=== PATIENT | male | born 1945 | race Caucasian/White ===

== ENCOUNTER 2018-06-19 14:13 | Emergency (ER) | payer MEDICARE, SELFPAY ==
[2018-06-19 14:14] VITALS: BP 183/117; PULSE 104; RESP 17; TEMP 36.6; O2SAT 95; BMI 27.8
--- NOTE | 2018-06-19 15:04 | RAD_ITS ---
STUDY: X-RAY - LEFT HAND REASON FOR EXAM: Male, 73 years old. Injury to the fourth digit. TECHNIQUE: 3 view(s) of the hand. COMPARISON: None. FINDINGS: Normal radiocarpal articulation. Normal distal radioulnar joint. Normal visualized carpal bones. Normal carpal articulations Normal carpometacarpal articulation of the thumb. Normal second through fifth carpometacarpal joints. Normal metacarpi. Normal metacarpophalangeal joint of the thumb. 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 Normal proximal and distal phalanges of the thumb. Normal metacarpophalangeal joints of the second through fifth fingers. 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 Only the proximal aspect of the proximal fillings of the index finger is seen. There is evidence of a nondisplaced fracture at the tuft of the distal phalanx of the fourth digit with overlying soft tissue swelling. Soft tissue swelling RAD/Hand Min 3 Views IMPRESSION: Nondisplaced fracture at the tuft of distal phalanx of the fourth digit with overlying soft tissue swelling and laceration. Electronically Signed: Chidi Johnson, at 15:44 EST , Service support ,
--- NOTE | 2018-06-19 15:06 | ED.VISSUMM ---
- ER Visit Summary Date of Service: 06/19/18 Chief Complaint: Left third and fourth finger laceration History of Present Illness: The patient is a 73 M who cut the tips of his left third and fourth fingers on a table saw around 1230 this afternoon. Patient took Tylenol prior to arrival. He is unsure of his last tetanus update. Medication list is reviewed and does not include anticoagulants. Physical Examination: Vital signs significant for blood pressure 183/117. Patient sitting upright in bed no acute distress. Head neck examination unremarkable. Heart is regular rate and rhythm without murmur. Lungs are clear. Left upper extremity examination reveals lacerations to the tips of the left third and fourth fingertips. He has a distal nail avulsion on the third finger. On the fourth finger there is distal nail avulsion and skin avulsion. There is a 1 cm laceration that wraps around the distal tuft of the finger. Test Results: Left hand x-rays are obtained and show a nondisplaced fracture of the tuft of the distal phalanx of the fourth digit with overlying soft tissue swelling and laceration. Emergency Department Course and Treatment: Patient is given a tetanus update and p.o. Keflex. Patient had digital block performed with a total of 6 cc of lidocaine to both the third and fourth fingers of the left hand. Third finger wound was cleansed. Skin and distal nail are avulsed, but there is no evidence of laceration that is amenable to suture. The fourth finger has distal nail avulsion and skin avulsion. There is a 1 cm laceration that wraps around the distal tuft that is sutured with 3 simple interrupted sutures of 3-0 Rapide Vicryl. Following this there is good hemostasis. Surgifoam was applied and dressings are placed. Patient will be treated with Keflex. Treatment Plan: [] Disposition: Discharge Impression: 1. Left fourth distal phalanx fracture/laceration status post suture 2. Left third distal phalanx skin avulsion This note was generated with [employer] dictation software. It may contain incorrect words, spelling, and punctuation that were not noted in review of the chart prior to signing ED Disposition - Plan for ED Patient: Referrals: Shreya Wheat MD [Primary Care Provider] -
--- NOTE | 2018-06-19 16:05 | ED.DEP ---
ED Disposition - Plan for ED Patient: Disposition: Home or Assisted Living Instructions: ED Laceration Hand, ED Fx Finger Open Prescriptions: Cephalexin [Keflex] 500 mg PO Q6 #40 capsule Referrals: Shreya Wheat MD [Primary Care Provider] - 1 Week
[2018-06-19] MEDS: Diphth,Pertuss(Acell),Tet Vac 0.5 ML Vial IM (16:18)
== END 2018-06-19 16:31 | disposition home or self-care (01) ==
PROVIDERS: Emergency Provider Emergency Medicine; Family Provider Internal Medicine; PCP Internal Medicine
DX: S62.665A Nondisplaced fracture of distal phalanx of left ring finger, initial encounter for closed fracture (principal); S61.315A Laceration without foreign body of left ring finger with damage to nail, initial encounter; S61.313A Laceration without foreign body of left middle finger with damage to nail, initial encounter; W31.2XXA Contact with powered woodworking and forming machines, initial encounter; Y93.9 Activity, unspecified; Y92.9 Unspecified place or not applicable; Z23 Encounter for immunization
CPT/HCPCS: 12001; 73130; 90471; 90715; 99283

== ENCOUNTER → 2023-08-02 | Outpatient (CLI) | payer MEDICARE, SELFPAY ==
--- NOTE | 2023-08-02 10:50 | STRESSREP_ITS ---
Stress Test Report 78-year-old man with a history of chest discomfort Exercise stress test. Resting EKG demonstrates normal sinus rhythm with a rate of 83 bpm and intervals are noted resting blood pressure is 142/80 mmHg. The patient exercised according to the regular Francois protocol for total duration of 3 minutes the maximum heart rate attained was 136 bpm which was 97% of max impacted heart rate the maximum workload was 4.6 metabolic equivalents. At rest there were no ST or T wave changes noted suggest ischemia and at peak exercise there was approxima tely [address] depression noted in leads II, III and aVF suggestive of ischemia. The patient also complained of throat tightness with exertion. This was relieved at rest. The peak blood pressure was 142/80 mmHg. Conclusion: Abnormal exercise stress test with EKG criteria for ischemia. Throat tightness reminiscent of his symptomatology.
== END | disposition home or self-care (01) ==
LOC: CVS 09:55
PROVIDERS: PCP Internal Medicine; Referring Provider Otolaryngology; Visit Provider Otolaryngology
DX: I20.9 Angina pectoris, unspecified (principal)
CPT/HCPCS: 93017

== ENCOUNTER 2023-08-07 16:14 | Outpatient (CLI) | payer MEDICARE, SELFPAY ==
--- NOTE | 2023-08-07 16:41 | RAD_ITS ---
STUDY: X-RAY CHEST REASON FOR EXAM: Male, 78 years old. chest pain TECHNIQUE: Complete chest, minimum of four views COMPARISON: None. FINDINGS: The lungs are clear and expanded. There is no demonstrated pleural abnormality. Normal size heart. Normal mediastinum and aleksandar. Normal visualized pulmonary arteries. Normal visualized aortic arch and descending thoracic aorta. Normal visualized thoracic spine. Normal visualized ribs, clavicles, and shoulders. There is no demonstrated abnormality of the visualized soft tissue structures of the upper abdomen. RAD/Chest 2 V w/ Apical/Lordotic IMPRESSION: Normal x-ray examination of the chest. Electronically Signed: Matthew Schreiber MD at 0:14 EDT ,
[2023-08-07 17:49] LABS: International Normalized Ratio 1.2; Prothrombin Time (Protime)PT. 14.8 SECONDS (11.7-14.9)
[2023-08-07 17:50] LABS: Partial Thromboplast Time 29.3 Seconds (24.1-36.2)
[2023-08-07 17:57] LABS: ALB/GLOB Ratio 0.9 RATIO (0.9-2.4); AST(SGOT) 31 U/L (15-37); Alanine Aminotransfer ALT/SGPT 28 U/L (16-61); Albumin, Serum 3.5 g/dL (3.2-5.0); Alkaline Phosphatase 103 U/L (45-117); Anion Gap 4 (5-15); BUN 30 mg/dL (7-18); BUN/Creat Ratio 21.9 RATIO (10-20); Calcium,Total 8.4 mg/dL (8.5-10.1); Chloride 107 mmol/L (98-107); Creatinine, Serum 1.37 mg/dL (0.70-1.30); EST Glomerular Filtration Rate 53 mL/min (>60); Est Glom Filt Rate - Afr Amer 64 mL/min (>60); Glucose 123 mg/dL (74-106); Protein, Total 7.5 g/dL (6.4-8.2); Sodium Level 137 mmol/L (136-145)
== END 2023-08-07 23:59 | disposition home or self-care (01) ==
PROVIDERS: PCP Internal Medicine; Referring Provider Internal Medicine Cardiovascular Disease; Visit Provider Internal Medicine Cardiovascular Disease
DX: I20.9 Angina pectoris, unspecified (principal); E78.00 Pure hypercholesterolemia, unspecified; D50.9 Iron deficiency anemia, unspecified; R07.9 Chest pain, unspecified
CPT/HCPCS: 36415; 71047; 80053; 85610; 85730

== ENCOUNTER → 2023-08-08 | Outpatient (CLI) | payer MEDICARE, SELFPAY ==
--- NOTE | 2023-08-08 12:44 | ECHOD_ITS ---
Reason For Study: Abnormal Stress Procedure This was a 2D Doppler, Color Flow transthoracic echocardiogram. Exam performed in department. Left Ventricle Normal LV size. Left ventricular systolic function is normal. The estimated ejection fraction is 60 %. Stage 1 diastolic dysfunction. No regional wall motion abnormalities noted. Right Ventricle Normal RV size. Normal systolic function. Atria Normal left atrium. Normal right atrium. Mitral Valve Normal mitral valve. Mild (1+) mitral valve insufficiency. Tricuspid Valve Normal tricuspid valve. Mild (1+) tricuspid valve insufficiency. Pulmonary artery systolic pressure is 48 mmHg. Aortic Valve Trisinus/trileaflet aortic valve. Mild focal aortic valve calcification. Peak aortic valve gradient 43 mmHg. Mean aortic valve gradient 23 mmHg. Mild (1+) aortic valve insufficiency. Pulmonic Valve Normal pulmonic valve. Great Vessels Normal aortic root. The pulmonary artery is normal size. Normal inferior vena cava. Pericardium/Pleural No pericardial effusion. MMode/2D Measurements & Calculations LVIDd: 4.1 cm IVSd: 1.2 cm LVOT diam: 2.0 cm LVIDs: 2.5 cm LVPWd: 0.99 cm LVOT area: 3.2 cm2 RVDd: 3.8 cm FS: 37.8 % Ao root diam: 3.6 cm LAV(MOD-bp): 54.2 ml Aortic Valve Planimetry: 1.0 cm2 LA dimension: 4.2 cm LAV(MOD-bp) Indexed: 32.7 ml/m2 LAV(MOD-sp2): 45.6 ml LAV(MOD-sp4): 62.4 ml LA A4 area: 20.5 cm2 RA A4 area: 15.7 cm2 Time Measurements MV dec time: 0.22 sec Doppler Measurements & Calculations MV E max virgilio: 87.4 cm/sec Lat Peak E' Virgilio: 8.9 cm/sec Med Peak E' Virgilio: 7.9 cm/sec MV A max virgilio: 99.8 cm/sec E/E' lat: 9.9 E/E' med: 11.0 MV E/A: 0.88 MV V2 max: 104.1 cm/sec MV P1/2t max virgilio: 101.0 cm/sec Ao V2 max: 326.0 cm/sec MV max P.3 mmHg MV P1/2t: 69.7 msec Ao max P.5 mmHg MV V2 mean: 57.3 cm/sec MV dec slope: 424.6 cm/sec2 Ao V2 mean: 225.2 cm/sec MV mean P.6 mmHg Ao mean P.2 mmHg MV V2 VTI: 28.4 cm MVA(P1/2t): 3.2 cm2 Ao V2 VTI: 69.4 cm MVA(VTI): 3.1 cm2 AV (velocity ratio): 0.40 BEATRIZ(I,D): 1.3 cm2 BEATRIZ(V,D): 1.2 cm2 AI max virgilio: 415.9 cm/sec LV V1 max: 122.5 cm/sec MR max virgilio: 510.1 cm/sec AI max P.4 mmHg LV V1 max P.0 mmHg MR max P.1 mmHg LV V1 mean P.4 mmHg AI dec slope: 241.7 cm/sec2 LV V1 mean: 86.7 cm/sec AI P1/2t: 504.1 msec LV V1 VTI: 27.8 cm SV(LVOT): 88.1 ml PA V2 max: 124.7 cm/sec TR max virgilio: 329.6 cm/sec TR max P.5 mmHg ECHO/Echo Complete Interpretation Summary Normal LV size. Left ventricular systolic function is normal. The estimated ejection fraction is 60 %. Stage 1 diastolic dysfunction. Mild focal aortic valve calcification. Mean aortic valve gradient 23 mmHg. Mild (1+) aortic valve insufficiency. The global longitudinal strain is normal. The global longitudinal strain = -20. 8 % (normal). Ordering Physician: Syed Gan Referring Physician: Shreya Wheat M.D. Performed By: [facility]
== END | disposition home or self-care (01) ==
LOC: CVS 12:42
PROVIDERS: PCP Internal Medicine; Referring Provider Internal Medicine Cardiovascular Disease; Visit Provider Internal Medicine Cardiovascular Disease
DX: R01.1 Cardiac murmur, unspecified (principal); R94.39 Abnormal result of other cardiovascular function study
CPT/HCPCS: 93306

== ENCOUNTER 2023-08-20 06:47 | Day surgery (SDC) | payer MEDICARE, SELFPAY ==
[2023-08-19 08:17] VITALS: BMI 26.2
[2023-08-20 07:04] LABS: Hematocrit 24.1 % (40-54); Hemoglobin 7.4 g/dL (13.0-16.5); Mean Corp Hgb Conc 30.7 g/dL (32-36); Mean Corpuscular Hgb 33.8 pg (27.0-32.0); Mean Platelet Vol. 10.9 fl (6.2-12.0); POSITIVE MORPHOLOGY YES; Platelet Count 195 K/mm3 (150-450); RBC Distribution Width CV 26.8 % (11.6-14.6); Red Blood Count 2.19 M/mm3 (4.6-6.2); White Blood Count 11.1 K/mm3 (4.4-11.0)
[2023-08-20 07:09] LABS: RBC Distribution Width SD 103.2 fl (35.1-43.9)
[2023-08-20 07:10] LABS: Scan Indicated on CBC? Y/N YES- FLAGS NOTED
[2023-08-20 07:19] LABS: Anion Gap 4 (5-15); BUN 24 mg/dL (7-18); BUN/Creat Ratio 19.7 RATIO (10-20); Calcium,Total 8.9 mg/dL (8.5-10.1); Chloride 108 mmol/L (98-107); Creatinine, Serum 1.22 mg/dL (0.70-1.30); EST Glomerular Filtration Rate 61 mL/min (>60); Est Glom Filt Rate - Afr Amer 73 mL/min (>60); Glucose 111 mg/dL (74-106); Potassium 4.2 mmol/L (3.5-5.1); Sodium Level 140 mmol/L (136-145)
--- NOTE | 2023-08-20 08:43 | CL.D_ITS ---
Patient Name: MARQUITA TORRES Study Date: 08/20/2023 Performing: Be Spangler MD Ht: 62 inches 157.48 cm : 1945 Wt: 142.99 lbs 64.86 kg Age: 78 Gender: male BSA: 1.66 PROCEDURE(S) PERFORMED DC01-(02886)LHC/COR/LV CLINICAL PROFILE AND INDICATIONS Indications: Suspected CAD, Valvular Disease Heart Failure: None Stress/Imaging Date: 07/28/23 CAD Presentations: Unstable angina. 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 Preserved ejection fraction noted. Mild aortic stenosis. RECOMMENDATIONS Will recommend optimization of medical therapy with panelboard operator oncologist with whom I have discussed this, and then referral for coronary bypass surgery and/or aortic valve replacement. DESCRIPTION OF PROCEDURE The patient arrived to the procedure lab. The risks and benefits of the procedure as well as a full description of our services here and current unavailability of surgical backup were fully explained to the patient and/or their significant other prior to the catheterization. The Timeout was completed, verifying the correct patient and procedure. The patient's procedural site was prepped and draped in the usual fashion. Local anesthetic was given subcutaneously to right radial region with Lidocaine 2%. Using a modified Seldinger technique, arterial access was obtained via the right radial artery, a 6Fr sheath was inserted. Right Coronary Artery selective angiography was then performed in multiple views using a 5 Fr. 4.0 [place] catheter. Left Coronary Artery selective angiography was performed in multiple views using a 5 Fr. JL3.5 catheter. Left Ventriculography was performed in [place] projection using a 5 Fr. Pigtail catheter. LV to AO pullback pressures were then recorded.The arterial sheath was pulled and a TR Band was applied for hemostasis 15 ML OF AIR CORONARY ANGIOGRAPHY DOMINANCE: Left Dominant LEFT HEART ASSESSMENT Left Ventricular Ejection Fraction: by LV Gram 55 % LEFT MAIN: Mild calcification, Distal 40% stenosis LEFT ANTERIOR DESCENDING ARTERY: Medium size vessel calcified in the midsegment with a long area of 60% stenosis. First bifurcating diagonal branch has an ostial 90% stenosis and the 2 branches have a proximal 70% stenosis. The left anterior descending artery then continues in the midsegment has a high-grade 90% stenosis. The rest of the vessel has mild luminal irregularities. CIRCUMFLEX ARTERY: Dominant vessel with proximal 50 to 60% stenosis and first obtuse marginal branch with 70% stenosis which bifurcates. The rest of the circumflex artery has diffuse 50% stenotic lesions. RAMUS: Mild diffuse disease present. RIGHT CORONARY ARTERY: No significant disease noted VALVE FINDINGS: Aortic Valve Calcification - mild Aortic Valve Stenosis - mild COMPLICATIONS No Complications PROCEDURE MEDICATIONS Fentanyl 50 mcg IV Versed 1 mg IV Oxygen: 2 L/min via nasal cannula Heparin given IA 08/20/2023 08:03:13 Verapamil 2.5mg, Ntg 100mcgs, 3000 units of Heparin given IA 08/20/2023 08:03:13 SUMMARY OF HEMODYNAMIC DATA Time AIR REST ECG 07:14:40 ECG 07:43:04 AO 107/59 (81) SA 08:09:24 AO 87/46 (62) 08:18:25 LV 105/19, 26 08:25:38 LV 112/20, 29 08:25:49 LV 102/13, 28 08:26:21 LV 110/18, 32 08:26:29 LVp 109/17, 31 08:26:33 AOp 101/54 (76) 08:26:40 08:39:22 Signed By Be Spangler MD On 08/20/2023 08:42:56 Be Spangler MD
== END 2023-08-20 10:40 | disposition home or self-care (01) ==
LOC: CLSP 06:49
PROVIDERS: Internal Medicine Cardiovascular Disease; PCP Internal Medicine; Referring Provider Internal Medicine Cardiovascular Disease; Visit Provider Internal Medicine Cardiovascular Disease
DX: I25.110 Atherosclerotic heart disease of native coronary artery with unstable angina pectoris (principal); I35.0 Nonrheumatic aortic (valve) stenosis; Z79.82 Long term (current) use of aspirin; Z79.899 Other long term (current) drug therapy; I10 Essential (primary) hypertension; E78.00 Pure hypercholesterolemia, unspecified; I25.84 Coronary atherosclerosis due to calcified coronary lesion
CPT/HCPCS: 36415; 80048; 85027; 93458; 99152; 99153; J7040; Q9967; C1769; C1894

== ENCOUNTER 2023-08-28 07:54 | Outpatient (CLI) | payer MEDICARE, SELFPAY ==
[2023-08-28 08:22] VITALS: BP 109/58; PULSE 76; RESP 16; TEMP 35.6; O2SAT 97; BMI 25.9
[2023-08-28] MEDS: 0.9% Normal Saline (500mL Bag) 500 ML 15 ML IV (08:26)
[2023-08-28] MEDS: 0.9% NaCl Peripheral Flush Adult/Peds IV (08:26)
[2023-08-28 08:46] VITALS: BP 99/56; PULSE 70; RESP 16; TEMP 36.2; O2SAT 99
[2023-08-28 09:46] VITALS: BP 106/60; PULSE 63; RESP 16; TEMP 36.3
[2023-08-28 10:49] VITALS: BP 109/62; PULSE 68; RESP 16; TEMP 36.2; O2SAT 97
[2023-08-28 11:42] VITALS: BP 127/69; PULSE 71; RESP 16; TEMP 36.2
== END 2023-08-28 23:59 | disposition home or self-care (01) ==
LOC: MEDOUTP 07:55
PROVIDERS: PCP Internal Medicine; Referring Provider Internal Medicine Hematology & Oncology; Visit Provider Internal Medicine Hematology & Oncology
DX: D50.9 Iron deficiency anemia, unspecified (principal)
CPT/HCPCS: 96360; 96361; 36430; 86850; 86900; 86901; 86920; 86922; J7040; P9016; A4216

== ENCOUNTER 2023-10-11 10:18 | Outpatient (CLI) | payer MEDICARE, SELFPAY ==
[2023-10-11] MEDS: Acetaminophen 325 MG Tablet 650 MG PO (11:09)
[2023-10-11] MEDS: 0.9% Normal Saline (500mL Bag) 500 ML 15 ML IV (11:10)
[2023-10-11] MEDS: 0.9% NaCl Peripheral Flush Adult/Peds IV (11:10)
[2023-10-11 11:24] VITALS: BP 127/88; PULSE 73; RESP 16; TEMP 36.7; O2SAT 96; BMI 26.2
[2023-10-11 12:15] VITALS: BP 127/68; PULSE 66; RESP 16; TEMP 36.5; O2SAT 93
[2023-10-11 13:23] VITALS: BP 120/69; PULSE 68; RESP 16; TEMP 36.3; O2SAT 96
[2023-10-11 14:04] VITALS: BP 122/88; PULSE 69; RESP 16; TEMP 36.4; O2SAT 93
== END 2023-10-11 23:59 | disposition home or self-care (01) ==
LOC: MEDOUTP 10:19
PROVIDERS: PCP Internal Medicine; Referring Provider Specialist; Visit Provider Specialist
DX: D50.9 Iron deficiency anemia, unspecified (principal)
CPT/HCPCS: 96360; 96361; 36430; 86850; 86900; 86901; 86920; 86922; J7040; P9016; A4216